=== PATIENT | female | born 1955 | race Caucasian/White ===

== ENCOUNTER 2019-09-23 16:50 | Emergency (ER) | payer MEDICARE, SELFPAY ==
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
[2019-09-23 19:20] VITALS: BP 126/73; PULSE 82; RESP 18; O2SAT 98
== END 2019-09-23 19:21 | disposition home or self-care (01) ==
PROVIDERS: Emergency Provider General Practice
DX: T20.16XA Burn of first degree of forehead and cheek, initial encounter (principal); T20.12XA Burn of first degree of lip(s), initial encounter; T26.01XA Burn of right eyelid and periocular area, initial encounter; T31.0 Burns involving less than 10% of body surface; Z96.652 Presence of left artificial knee joint; E78.5 Hyperlipidemia, unspecified; X03.0XXA Exposure to flames in controlled fire, not in building or structure, initial encounter
CPT/HCPCS: 12032; 16000; 99283; A9270